=== PATIENT | female | born 1950 | race Asian ===

== ENCOUNTER 2017-06-14 13:11 | Emergency (ER) | payer MEDICARE ==
[~2017-06-14] VITALS: Ht 172.7 cm; Wt 60.0 kg
[2017-06-14 14:03] LABS: HEMATOCRIT 41.3 % (37.0-47.0); HEMOGLOBIN 14.2 g/dl (12.0-16.0); IMMATURE GRANULOCYTES 1.3 % (0.0-1.0); MEAN CELL VOLUME 90.8 fL CALC (80.0-100.0); MEAN CORPUSCULAR HGB 31.2 pG CALC (26.0-32.0); MEAN CORPUSCULAR HGB CONC 34.4 g/L CALC (32.0-36.0); NEUT# 11.89 thou/uL (2.00-7.15); RED BLOOD COUNT 4.55 mill/uL (4.20-5.60)
[2017-06-14 14:14] LABS: ANION GAP 16 (6-22 (CALC)); BUN 15 mg/dL (8-23); BUN/CREATININE RATIO 24 (12-20 (CALC)); CARBON DIOXIDE 25 mmol/l (22-30); CHLORIDE 105 mmol/l (95-108); CREATININE 0.6 mg/dL (0.5-1.0); GFR > 60 ML/MIN (>=60 (CALC)); GFR FOR AFR.AMER. > 60 ML/MIN (>=60 (CALC)); GLUCOSE 127 mg/dL (82-115); POTASSIUM 3.3 mmol/l (3.5-5.1); SODIUM 142 mmol/l (137-146)
[2017-06-14] MEDS ORDERED: AMLODIPINE5 MG PO (14:19)
[2017-06-14] MEDS ORDERED: LOVASTATIN20 M1 PO (14:19)
[2017-06-14] MEDS ORDERED: PERCOCET 5/321 COMBO PO (14:20)
[2017-06-14] MEDS ORDERED: ZOFRAN4 M1 PO (14:40)
[2017-06-14 14:46] VITALS: BP 121/60
== END 2017-06-14 14:53 | disposition home or self-care (01) ==
LOC: ED 13:11
PROVIDERS: Family Medicine
DX: R10.13 Epigastric pain (principal); R11.10 Vomiting, unspecified; R42 Dizziness and giddiness; R00.2 Palpitations; Z98.890 Other specified postprocedural states

== ENCOUNTER 2020-05-24 17:35 | Emergency (ER) | payer MEDICARE ==
[~2020-05-24] VITALS: Ht 149.9 cm; Wt 59.0 kg
[~2020-05-24 17:35] MED LIST: AMLODIPINE5 MG PO; LOVASTATIN20 M1 PO; PERCOCET 5/321 COMBO PO; ZOFRAN4 M1 PO
[2020-05-24 19:43] LABS: HEMATOCRIT 43.9 % (37.0-47.0); IMMATURE GRANULOCYTES 0.1 % (0.0-5.0); MEAN CELL VOLUME 93.2 fL CALC (80.0-100.0); MEAN CORPUSCULAR HGB 29.7 pG CALC (26.0-32.0); MEAN CORPUSCULAR HGB CONC 31.9 g/dL CAL (32.0-36.0); NEUT# 6.41 thou/uL (2.00-7.15); RED BLOOD COUNT 4.71 mill/uL (4.20-5.60); RED CELL DISTRI WIDTH 12.1 % (11.5-15.5)
[2020-05-24 19:55] LABS: ALBUMIN 4.8 g/dL (3.2-5.0); ALKALINE PHOSPHATASE 83 u/l (38-126); BILIRUBIN, TOTAL 1.8 mg/dL (0.0-1.4); BUN 15 mg/dL (8-23); BUN/CREATININE RATIO 24 (12-20 (CALC)); CARBON DIOXIDE 28 mmol/l (22-30); CHLORIDE 105 mmol/l (95-108); CREATININE 0.6 mg/dL (0.5-1.0); GFR > 60 ML/MIN (>=60 (CALC)); GFR FOR AFR.AMER. > 60 ML/MIN (>=60 (CALC)); SGOT/AST 52 u/l (9-36); SODIUM 138 mmol/l (137-146); TOTAL PROTEIN 8.5 g/dL (6.3-8.2)
[2020-05-24 20:02] LABS: D-DIMER 0.35 mg/L (0.19-0.60)
[2020-05-24 20:03] LABS: ANION GAP 10 (6-22 (CALC)); POTASSIUM 5.1 mmol/l (3.5-5.1)
[2020-05-24 20:06] LABS: ACT PARTIAL THROMBO TIME 20.3 SECONDS (20.0-32.5); PROTHROMBIN TIME 10.1 SECONDS (9.0-12.5)
[2020-05-24 20:07] LABS: MYOGLOBIN 18 ng/mL (0 - 62)
[2020-05-24] MEDS ORDERED: MEDDOSEPAK PO (20:52)
[2020-05-24] MEDS ORDERED: ROBITUSSIN AC10 ML PO (20:52)
[2020-05-24] MEDS ORDERED: VENTOLIN HFA IN (20:52)
[2020-05-24] MEDS ORDERED: ZITHROMAX250 MG PO (20:52)
[2020-05-24 22:05] VITALS: BP 115/45
== END 2020-05-24 22:05 | disposition home or self-care (01) ==
LOC: ED 17:35
PROVIDERS: Emergency Medicine
DX: J18.9 Pneumonia, unspecified organism (principal); J32.9 Chronic sinusitis, unspecified; I10 Essential (primary) hypertension; Z20.828 Contact with and (suspected) exposure to other viral communicable diseases